=== PATIENT | male | born 1990 | race Caucasian/White ===

== ENCOUNTER 2019-09-02 14:59 | Emergency (ER) | payer OTHER ==
[~2019-09-02] VITALS: Ht 177.8 cm; Wt 79.5 kg
[~2019-09-02 14:59] MED LIST: LIDOcaine 1% W/epiNEPHrine 1:200,000 10ml vial ONE
[2019-09-02 15:02] VITALS: BP 124/87
[2019-09-02] MEDS ORDERED: TETanus/Pertussis (Acell)/Diphther VAC/PF (Tdap-Adult) 0.5ml syringe IMVAC ONE (15:45)
== END 2019-09-02 17:09 | disposition home or self-care (01) ==
LOC: ER 14:59
DX: S61.012A Laceration without foreign body of left thumb without damage to nail, initial encounter (principal); Z88.2 Allergy status to sulfonamides; W45.8XXA Other foreign body or object entering through skin, initial encounter; Y93.89 Activity, other specified; Y92.89 Other specified places as the place of occurrence of the external cause; Y99.8 Other external cause status
CPT/HCPCS: 12001; 90471; 90715; 99283